=== PATIENT | female | born 1975 | race Caucasian/White ===

== ENCOUNTER → 2022-03-14 15:21 | Outpatient (BNVA) | payer MEDICAID, SELFPAY | PROVIDERS: Visit Provider Nurse Practitioner Psychiatric/Mental Health | DX: Z51.81 Encounter for therapeutic drug level monitoring (principal); F11.20 Opioid dependence, uncomplicated; F10.20 Alcohol dependence, uncomplicated | CPT/HCPCS: 80305; 99202; 99212 ==

== ENCOUNTER → 2022-03-21 16:01 | Outpatient (BNVA) | payer MEDICAID, SELFPAY | PROVIDERS: Visit Provider Nurse Practitioner Psychiatric/Mental Health | DX: Z51.81 Encounter for therapeutic drug level monitoring (principal); F11.20 Opioid dependence, uncomplicated | CPT/HCPCS: 80305; 99212 ==

== ENCOUNTER → 2022-04-11 14:37 | Outpatient (BNVA) | payer MEDICAID, SELFPAY | PROVIDERS: Visit Provider Nurse Practitioner Psychiatric/Mental Health | DX: F11.20 Opioid dependence, uncomplicated (principal); F10.20 Alcohol dependence, uncomplicated | CPT/HCPCS: 80305; 99212 ==

== ENCOUNTER → 2022-04-25 16:50 | Outpatient (BNVA) | payer MEDICAID, SELFPAY | PROVIDERS: PCP Internal Medicine; Visit Provider Nurse Practitioner Psychiatric/Mental Health | DX: F11.20 Opioid dependence, uncomplicated (principal); F10.20 Alcohol dependence, uncomplicated | CPT/HCPCS: 99212 ==

== ENCOUNTER → 2022-05-23 16:17 | Outpatient (BNVA) | payer MEDICAID, SELFPAY | PROVIDERS: PCP Internal Medicine; Visit Provider Nurse Practitioner Psychiatric/Mental Health | DX: F11.20 Opioid dependence, uncomplicated (principal); F10.20 Alcohol dependence, uncomplicated | CPT/HCPCS: 80305; 99212 ==

== ENCOUNTER 2024-02-11 15:43 | Outpatient (AMB) | payer MEDICAID, SELFPAY ==
--- NOTE | 2024-02-11 15:44 | MHC.AM.SUB ---
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 She reports she received the first both loading doses, and then when she received the 100mg she felt it was not adequate SHe reports she had pain and bruising from the sublocade Last injection received 7 weeks ago Has been drinking to stave off withdrawal symptoms (1-1.5 pints daily) Occasionally uses cocaine a few times a week- 4 lines Has been in recovery for OUD for 8 years, however she continues to struggle with alcohol use Has no current providers and is requesting [facility] referral No hx of psych hospitalizations, no SI/HI or history of Treatment goal is to re-establish care and resume suboxone with the clinic HPI Comments History of Present Illness Details Patient presents for MAT visit Review of Systems Const Reports as per HPI Musc Reports myalgias Physical Exam Vital Signs: Last Vital Signs Pulse 107 H 02/11/24 15:53 BP 160/84 H 02/11/24 15:53 Pulse Ox 99 02/11/24 15:53 Oxygen Delivery Method Room Air 02/11/24 15:53 Const General: cooperative and anxious Resp Effort & Inspection: normal respiratory effort Psych Appearance: grossly normal Mental Status: mental status grossly normal Speech and movement: Restless speech present Affect: Anxious affect present Attitude: cooperative Thought process: Normal thought process present Thought content: Normal thought content present, suicidality and no homicidality Results AMB 14 Panel Urine Drug Screen Urine Marijuana (THC) Negative Last Edit by Amina Herrera CMA on 02/11/24 15:55 Urine Cocaine Negative Last Edit by Amina Herrera CMA on 02/11/24 15:55 Urine Morphine Negative Last Edit by Amina Herrera CMA on 02/11/24 15:55 Urine Methamphetamine Negative Last Edit by Amina Herrera CMA on 02/11/24 15:55 Urine Amphetamine Negative Last Edit by Amina Herrera CMA on 02/11/24 15:55 Urine Benzodiazepine Negative Last Edit by Amina Herrera CMA on 02/11/24 15:55 Urine Barbiturates Negative Last Edit by Amina Herrera CMA on 02/11/24 15:55 Urine Methadone Negative Last Edit by Amina Herrera CMA on 02/11/24 15:55 Urine Buprenorphine Positive Last Edit by Amina Herrera CMA on 02/11/24 15:55 Urine Tricyclic Antidepressant Negative Last Edit by Amina Herrera CMA on 02/11/24 15:55 Urine MDMA Negative Last Edit by Amina Herrera CMA on 02/11/24 15:55 Urine Oxycodone Negative Last Edit by Amina Herrera CMA on 02/11/24 15:55 Urine Phencyclidine Negative Last Edit by Amina Herrera CMA on 02/11/24 15:55 Urine Propoxyphene Negative Last Edit by Amina Herrera CMA on 02/11/24 15:55 Results Reviewed Results Reviewed: Laboratory Last Values POC Urine Buprenorphine Positive 02/11/24 15:47 POC Urine Morphine Negative 02/11/24 15:47 POC Urine Oxycodone Negative 02/11/24 15:47 POC Urine Methadone Negative 02/11/24 15:47 POC Urine Propoxyphene Negative 02/11/24 15:47 POC Urine Barbiturates Negative 02/11/24 15:47 POC U Tricyclic Antidpr Negative 02/11/24 15:47 POC Urine PCP Negative 02/11/24 15:47 POC Ur Amphetamines Negative 02/11/24 15:47 POC Ur Methamphetamine Negative 02/11/24 15:47 POC Urine MDMA Negative 02/11/24 15:47 POC Ur Benzodiazepine Negative 02/11/24 15:47 POC Urine Cocaine Negative 02/11/24 15:47 POC Ur Marijuana (THC) Negative 02/11/24 15:47 Assessment & Plan Assessment & Plan (1) Opioid use disorder: Code(s): F11.90 - Opioid use, unspecified, uncomplicated Plan: -Patient to strip picker single 8mg film today, instructed her to call office should she have any barriers to picking up medication -Instructed patient to call office tomorrow morning to discuss plan moving forward for films and eventual injection -Follow up 1 week (2) Alcohol use disorder, moderate, dependence: Code(s): F10.20 - Alcohol dependence, uncomplicated Plan: -Reviewed with her alcohol withdrawal timeline and instructed her to never stop drinking suddenly -Discussed with her that plan for decrease in alcohol use will be made in subsequent visit after OUD is addressed and she is stabilized with meds (3) Encounter to establish care: Code(s): Z76.89 - Persons encountering health services in other specified circumstances Plan: -Routine labwork ordered to bridge patient to primary care Orders: Orders Comprehensive Met. Panel 02/12/24 Z76.89 - Persons encountering health services in other specified circumstances Vitamin D 1,25 dihydroxy 02/12/24 Z76.89 - Persons encountering health services in other specified circumstances Lipid Panel 02/12/24 Z76.89 - Persons encountering health services in other specified circumstances AMB 14 Panel Urine Drug Screen 02/11/24 Z51.81 - Encounter for therapeutic drug level monitoring Complete Blood Count Auto Diff 02/12/24 Z76.89 - Persons encountering health services in other specified circumstances Hepatitis A,B,C Profile 02/12/24 Z76.89 - Persons encountering health services in other specified circumstances Magnesium 02/12/24 Z76.89 - Persons encountering health services in other specified circumstances TSH reflex Free T4 02/12/24 Z76.89 - Persons encountering health services in other specified circumstances Medications: New buprenorphine-naloxone 8-2 mg 1 film buccal DAILY 1 ea 0RF buprenorphine-naloxone 8-2 mg 1 film buccal BID 14 ea 0RF Refilled clonidine HCl 0.1 mg PO BID PRN 14 tabs 0RF anxiety clonidine HCl 0.1 mg PO BID PRN 14 tabs 0RF anxiety Coding Level of Care Code New Pt Level 4 (30554) Diagnoses Opioid use disorder F11.90 Alcohol use disorder, moderate, dependence F10.20 Encounter to establish care Z76.89
[2024-02-11 15:53] VITALS: BP 160/84; PULSE 107; O2SAT 99
== END 2024-02-11 16:22 | disposition home or self-care (01) ==
PROVIDERS: PCP Internal Medicine; Visit Provider Nurse Practitioner Family
DX: F11.90 Opioid use, unspecified, uncomplicated (principal); F10.20 Alcohol dependence, uncomplicated; Z76.89 Persons encountering health services in other specified circumstances
CPT/HCPCS: 99204

== ENCOUNTER → 2024-02-11 15:43 | Outpatient (BNVA) | payer MEDICAID, SELFPAY | PROVIDERS: PCP Internal Medicine; Visit Provider Nurse Practitioner Family | DX: F11.90 Opioid use, unspecified, uncomplicated (principal); F10.20 Alcohol dependence, uncomplicated; Z51.81 Encounter for therapeutic drug level monitoring; Z76.89 Persons encountering health services in other specified circumstances | CPT/HCPCS: 80305; 99212 ==

== ENCOUNTER 2024-04-12 14:42 | Outpatient (AMB) | payer MEDICAID, SELFPAY ==
[2024-04-12 15:15] VITALS: BP 132/78; PULSE 103; RESP 15; O2SAT 98
--- NOTE | 2024-04-12 15:15 | MHC.AM.SUB ---
Vital Signs 04/12/24 15:15 BP 132/78 Blood Pressure Location Lt brachial Position Sitting Respiration 15 Pulse 103 H Pulse Source Pulse Oximeter Pulse Oximetry (%) 98 Oxygen Delivery Method Room Air Intake Visit Reasons: MAT Visit Allergies No Known Allergies Allergy (Verified 02/11/24 15:45) HPI HPI MAT Visit: Details: Patient presents for MAT visit States she has been facing challenges with her insurance that was finally very recently re-instated States she has been using cocaine intranasally - reports using 3-4/week a few lines every time Has been drinking a pint and a half of vodka daily, last drink was yesterday She would like to address her alcohol and cocaine use once she is stablized with the suboxone, 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 Is interested in a counseling referral at this time Review of Systems Const Reports as per HPI and Reports difficulty sleeping GI Reports diarrhea Physical Exam Const General: cooperative and no acute distress Resp Effort & Inspection: normal respiratory effort and able to speak in complete sentences Psych Appearance: grossly normal Mental Status: mental status grossly normal Speech and movement: Normal speech and movement present Affect: normal affect Attitude: cooperative Thought process: Normal thought process present Assessment & Plan Assessment & Plan (1) Alcohol use disorder, moderate, dependence: Code(s): F10.20 - Alcohol dependence, uncomplicated Category: Medical Plan: -Reviewed with pt dangers of abruptly stopping alcohol use, reviewed with her timeline for alcohol withdrawal -Discussed harm reduction techniques (not drinking on an empty stomach, alternating alcohol with fluids such as water/juice) (2) Opioid use disorder: Code(s): F11.90 - Opioid use, unspecified, uncomplicated Category: Medical Plan: -Mass pat reviewed -Continue suboxone 8mg BID, rx sent to pharmacy -Counseling referral placed -Follow up 1 week (3) Cocaine use disorder: Code(s): F14.10 - Cocaine abuse, uncomplicated Category: Medical Plan: -Harm reduction discussion Orders: Referrals Counseling Referral F10.20 - Alcohol dependence, uncomplicated, F11.90 - Opioid use, unspecified, uncomplicated Medications: New esomeprazole magnesium 20 mg PO DAILY 30 caps 0RF Refilled clonidine HCl 0.1 mg PO BID PRN 60 tabs 0RF for anxiety buprenorphine-naloxone 8-2 mg 1 film buccal BID 60 ea 0RF
== END 2024-04-12 15:23 | disposition home or self-care (01) ==
PROVIDERS: PCP Internal Medicine; Visit Provider Nurse Practitioner Family
DX: F10.20 Alcohol dependence, uncomplicated (principal); F11.90 Opioid use, unspecified, uncomplicated; F14.10 Cocaine abuse, uncomplicated
CPT/HCPCS: 99213

== ENCOUNTER → 2024-04-12 14:42 | Outpatient (BNVA) | payer MEDICAID, SELFPAY | PROVIDERS: PCP Internal Medicine; Visit Provider Nurse Practitioner Family | DX: F10.20 Alcohol dependence, uncomplicated (principal); F11.20 Opioid dependence, uncomplicated; F14.10 Cocaine abuse, uncomplicated; Z79.899 Other long term (current) drug therapy | CPT/HCPCS: 99212 ==

== ENCOUNTER → 2024-05-20 14:06 | Outpatient (BNVA) | payer MEDICAID, SELFPAY | PROVIDERS: PCP Internal Medicine ==

== ENCOUNTER 2024-06-14 14:40 | Outpatient (AMB) | payer MEDICAID, SELFPAY ==
[2024-06-14 14:44] VITALS: BP 130/80; PULSE 91; RESP 19
--- NOTE | 2024-06-14 14:44 | MHC.AM.SUB ---
Vital Signs 06/14/24 14:44 BP 130/80 Blood Pressure Location Lt brachial Position Sitting Respiration 19 Pulse 91 Intake Visit Reasons: MAT Allergies No Known Allergies Allergy (Verified 02/11/24 15:45) HPI HPI MAT: Details: Patient presents follow up Currently prescribed suboxone 8mg BID Tolerating current dose Drinking one pint of vodka daily Reports worsening depression and anxiety limited supports Review of Systems Const Reports as per HPI Physical Exam Vital Signs: Last Vital Signs Pulse 91 06/14/24 14:44 Resp 19 06/14/24 14:44 BP 130/80 06/14/24 14:44 Const General: cooperative and no acute distress Resp Effort & Inspection: normal respiratory effort and able to speak in complete sentences Psych Appearance: grossly normal Mental Status: mental status grossly normal Speech and movement: Normal speech and movement present Affect: Sad affect present and Anxious affect present Attitude: cooperative Thought process: Normal thought process present Thought content: Depressive thoughts present Insight: Fair insight present (Psych) Judgement: Fair judgement present (Psych) Assessment & Plan Assessment & Plan (1) Alcohol use disorder, moderate, dependence: Code(s): F10.20 - Alcohol dependence, uncomplicated Category: Medical Plan: -risk reduction discussion (2) Opioid use disorder: Code(s): F11.90 - Opioid use, unspecified, uncomplicated Category: Medical Plan: -continue suboxone at current dose (3) Cocaine use disorder: Code(s): F14.10 - Cocaine abuse, uncomplicated Category: Medical Plan: -Harm reduction discussion Medications: Refilled clonidine HCl 0.1 mg PO BID PRN 60 tabs 0RF for anxiety buprenorphine-naloxone 8-2 mg 1 film buccal BID 60 ea 0RF
== END 2024-06-14 15:06 | disposition home or self-care (01) ==
PROVIDERS: PCP Internal Medicine; Visit Provider Nurse Practitioner Psychiatric/Mental Health
DX: F10.20 Alcohol dependence, uncomplicated (principal); F11.90 Opioid use, unspecified, uncomplicated; F14.10 Cocaine abuse, uncomplicated
CPT/HCPCS: 99214

== ENCOUNTER → 2024-06-14 14:40 | Outpatient (BNVA) | payer MEDICAID, SELFPAY | PROVIDERS: PCP Internal Medicine; Visit Provider Nurse Practitioner Psychiatric/Mental Health | DX: F10.20 Alcohol dependence, uncomplicated (principal); F11.90 Opioid use, unspecified, uncomplicated; F14.10 Cocaine abuse, uncomplicated | CPT/HCPCS: 99212 ==

== ENCOUNTER 2024-07-16 09:10 | Outpatient (AMB) | payer MEDICAID, SELFPAY ==
--- NOTE | 2024-07-16 09:12 | MHC.AM.SUB ---
Intake Visit Reasons: MAT Tele Allergies No Known Allergies Allergy (Verified 02/11/24 15:45) [facility] MAT Tele: Details: Patient presents for follow up via telehealth Reports she is tolerating current suboxone dose Still drinking -approx a pint of vodka daily considering ATS placement would like a therapist Review of Systems Const Reports as per [facility] Telehealth Telehealth Telehealth Platform: Telephone Location of provider rendering services: practice address Location of patient: address on file Patient Identification confirmed using: Name, : Yes Telehealth method: voice only Patient verbally consented to treatment: Yes Patient verbally consented to billing insurance company: Yes Minutes spent on Phone/Video with Pt.: 20 Assessment & Plan Assessment & Plan (1) Alcohol use disorder, moderate, dependence: Code(s): F10.20 - Alcohol dependence, uncomplicated Category: Medical Plan: -risk reduction discussion -encouraged to call office if she needs assistance with ATS placement (2) Opioid use disorder: Code(s): F11.90 - Opioid use, unspecified, uncomplicated Category: Medical Plan: -continue suboxone at current dose -follow up 4 weeks in office (3) Cocaine use disorder: Code(s): F14.10 - Cocaine abuse, uncomplicated Category: Medical Plan: -Harm reduction discussion Medications: Refilled buprenorphine-naloxone 8-2 mg 1 film buccal BID 60 ea 0RF
== END 2024-07-16 09:29 | disposition home or self-care (01) ==
PROVIDERS: PCP Internal Medicine; Visit Provider Nurse Practitioner Psychiatric/Mental Health
DX: F10.20 Alcohol dependence, uncomplicated (principal); F11.90 Opioid use, unspecified, uncomplicated; F14.10 Cocaine abuse, uncomplicated
CPT/HCPCS: 99214

== ENCOUNTER → 2024-07-16 09:10 | Outpatient (BNVA) | payer MEDICAID, SELFPAY | PROVIDERS: PCP Internal Medicine; Visit Provider Nurse Practitioner Psychiatric/Mental Health ==

== ENCOUNTER 2024-08-25 14:20 | Outpatient (AMB) | payer MEDICAID, SELFPAY ==
--- NOTE | 2024-08-25 14:47 | MHC.AM.SUB ---
Intake Visit Reasons: MAT Office Allergies No Known Allergies Allergy (Verified 02/11/24 15:45) HPI HPI MAT Office: Details: Patient presents for follow up AUD and OUD will be looking for a new place to live going for her license on Friday hoping to get back into work as [employer] Doing well with current suboxone dose denies any opiate use Drinking approx a pint of vodka daily trying to decrease her intake Review of Systems Const Reports as per HPI Physical Exam Const General: cooperative, anxious and well groomed Orientation/consciousness: patient oriented x3 Limitations: no limitations Neuro General: patient oriented x3 Assessment & Plan Assessment & Plan (1) Alcohol use disorder, moderate, dependence: Code(s): F10.20 - Alcohol dependence, uncomplicated Category: Medical Plan: -risk reduction discussion -agreeable to meeting with assistant men's lacrosse coach today in office (2) Opioid use disorder: Code(s): F11.90 - Opioid use, unspecified, uncomplicated Category: Medical Plan: -continue suboxone at current dose -follow up 4 weeks in office (3) Cocaine use disorder: Code(s): F14.10 - Cocaine abuse, uncomplicated Category: Medical Plan: -Harm reduction discussion Medications: Refilled buprenorphine-naloxone 8-2 mg 1 film buccal BID 60 ea 0RF clonidine HCl 0.1 mg PO BID PRN 60 tabs 0RF for anxiety
== END 2024-08-25 15:15 | disposition home or self-care (01) ==
PROVIDERS: PCP Internal Medicine; Visit Provider Nurse Practitioner Psychiatric/Mental Health
DX: F10.20 Alcohol dependence, uncomplicated (principal); F11.90 Opioid use, unspecified, uncomplicated; F14.10 Cocaine abuse, uncomplicated
CPT/HCPCS: 99214

== ENCOUNTER → 2024-08-25 14:20 | Outpatient (BNVA) | payer MEDICAID, SELFPAY | PROVIDERS: PCP Internal Medicine; Visit Provider Nurse Practitioner Psychiatric/Mental Health | DX: F11.20 Opioid dependence, uncomplicated (principal); F10.20 Alcohol dependence, uncomplicated | CPT/HCPCS: 99212 ==

== ENCOUNTER → 2024-09-22 15:14 | Outpatient (BNVA) | payer MEDICAID, SELFPAY | PROVIDERS: PCP Internal Medicine; Visit Provider Nurse Practitioner Psychiatric/Mental Health ==

== ENCOUNTER 2024-11-17 14:50 | Outpatient (AMB) | payer MEDICAID, SELFPAY ==
[2024-11-17 14:45] VITALS: BP 170/90; PULSE 111
--- NOTE | 2024-11-17 14:54 | A.OFFVISCC_ITS ---
Vital Signs 11/17/24 14:45 BP 170/90 H Blood Pressure Location Lt brachial Position Sitting Pulse 111 H Pulse Source Pulse Oximeter Intake Visit Reasons: MAT Allergies No Known Allergies Allergy (Verified 02/11/24 15:45) Medication List - Last Reconciled 11/17/24 by Duyen Royal CNP buprenorphine-naloxone 8-2 mg 1 film buccal BID clonidine HCl 0.1 mg PO BID PRN esomeprazole magnesium 20 mg PO DAILY HPI HPI MAT: Details: Patient presents for OUD and AUD treatment follow up Reports she has been cutting down her alcohol intake Cut down from 1 pint to 1/2 pint started about 5 days ago Drinking throughout the day--mixes with with V8 Feeling emotional, overwhelmed interested in detox to manage withdrawals 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 BP and HR elevated--patient tearful and anxious, states she did not take her suboxone today Does not want to pursue ATS admission today, has a court date on Friday, but plans to call on Friday Review of Systems Const Reports as per HPI, Reports body aches, Reports difficulty sleeping and Reports malaise Psych Reports anxiety, Reports depression, Reports difficulty concentrating and Reports anhedonia Physical Exam Const General: cooperative, anxious and well groomed Orientation/consciousness: patient oriented x3 Limitations: no limitations Neuro General: patient oriented x3 Psych Appearance: well kempt Speech and movement: Clear speech present Affect: Anxious affect present Attitude: cooperative Thought process: Circumstantial thought process present Insight: Fair insight present (Psych) Judgement: Fair judgement present (Psych) Assessment & Plan Assessment & Plan (1) Alcohol use disorder, moderate, dependence: Code(s): F10.20 - Alcohol dependence, uncomplicated Category: Medical Plan: * risk reduction discussion * encouraged to present to ED should withdrawal sx worsen * patient plans to call for ATS admission over the weekend (2) Opioid use disorder: Code(s): F11.90 - Opioid use, unspecified, uncomplicated Category: Medical Plan: * refilled suboxone * refilled clonidine for anxiety Medications: Refilled clonidine HCl 0.1 mg PO BID PRN 60 tabs 0RF for anxiety buprenorphine-naloxone 8-2 mg 1 film buccal BID 60 ea 0RF esomeprazole magnesium 20 mg PO DAILY 90 caps 0RF
== END 2024-11-17 15:37 | disposition home or self-care (01) ==
PROVIDERS: PCP Internal Medicine; Visit Provider Nurse Practitioner Psychiatric/Mental Health
DX: F10.20 Alcohol dependence, uncomplicated (principal); F11.90 Opioid use, unspecified, uncomplicated
CPT/HCPCS: 99214

== ENCOUNTER → 2024-11-17 14:50 | Outpatient (BNVA) | payer MEDICAID, SELFPAY | PROVIDERS: PCP Internal Medicine; Visit Provider Nurse Practitioner Psychiatric/Mental Health | DX: F10.20 Alcohol dependence, uncomplicated (principal); F11.90 Opioid use, unspecified, uncomplicated | CPT/HCPCS: 99212 ==